=== PATIENT | female | born 1970 | race Hispanic/Latino ===

== ENCOUNTER → 2019-06-04 | Outpatient (CLI) | payer BC | END | disposition home or self-care (01) | LOC: RAH 08:21 | PROVIDERS: ATTEND Obstetrics & Gynecology | DX: Z12.31 Encounter for screening mammogram for malignant neoplasm of breast (principal) | CPT/HCPCS: 77067 ==

== ENCOUNTER → 2020-10-25 | Outpatient (CLI) | payer BC | END | disposition home or self-care (01) | LOC: RAH 15:01 | PROVIDERS: ATTEND Obstetrics & Gynecology | DX: Z12.31 Encounter for screening mammogram for malignant neoplasm of breast (principal); N64.89 Other specified disorders of breast | CPT/HCPCS: 77067 ==

== ENCOUNTER → 2022-05-22 | Outpatient (CLI) | payer BC | END | disposition home or self-care (01) | LOC: RAH 14:37 | PROVIDERS: ATTEND Obstetrics & Gynecology | DX: Z12.31 Encounter for screening mammogram for malignant neoplasm of breast (principal) | CPT/HCPCS: 77067 ==

== ENCOUNTER → 2023-06-06 | Outpatient (CLI) | payer BC | END | disposition home or self-care (01) | LOC: RAH 08:24 | PROVIDERS: ATTEND Physician Assistant Medical | DX: Z12.31 Encounter for screening mammogram for malignant neoplasm of breast (principal) | CPT/HCPCS: 77067 ==

== ENCOUNTER → 2025-08-03 | Outpatient (CLI) | payer BC | END | disposition home or self-care (01) | LOC: RAH 15:05 | PROVIDERS: ATTEND Obstetrics & Gynecology | DX: Z12.31 Encounter for screening mammogram for malignant neoplasm of breast (principal) | CPT/HCPCS: 77067 ==